=== PATIENT | female | born 1950 | race Caucasian/White ===

== ENCOUNTER 2016-07-25 12:49 | Day surgery (SDC) | payer MEDICARE, OTHER ==
[~2016-07-25 12:49] MED LIST: HYDR-3533 PO; LOVA1TAB47 PO; MELO15TA2 PO
[2016-07-25 13:40] VITALS: BP 125/73; PULSE 75; RESP 14; TEMP 98.6; O2SAT 97
--- NOTE | 2016-07-25 16:50 | RADRPT ---
EXAM DATE/TIME: 07/25/2016 13:52 [place] COMPARISON: No previous studies available for comparison. INDICATIONS : Fluid collection. MEDICAL HISTORY : Hypercholesterolemia. Arthritis. Reading glasses. SURGICAL HISTORY : Tonsillectomy. Right eye LASIK surgery. Right knee surgery. Left wrist surger y. ENCOUNTER: Initial ACUITY: 3 weeks PAIN SCORE: 2/10 LOCATION: Right arm. AREA EVALUATED: Right upper forearm antecubital fossa FINDINGS: Ms. Loza came in for an ultrasound-guided biopsy of a mass on the volar aspect of th e forearm just anterior to the antecubital fossa in intimate association with the brachial artery and median nerve. This mass is imaged as an inhomogeneous complex mass that is nonpainful and nontender to touch. This is associated with a small lymph node. Percutaneous biopsy is not recommended unless one is planned for definitive resection if this is a ma lignancy. Thank you for this consultation. Brandyn Palmer MD FACR on July 25, 2016 at 16:36 Board Certified Radiologist. This report was verified electronically.
== END 2016-07-25 14:00 | disposition home or self-care (01) ==
LOC: HRAD 12:49 → HRIP 12:50 → HRAD 14:00
PROVIDERS: ATTEND Surgery
DX: R22.31 Localized swelling, mass and lump, right upper limb (principal); E78.00 Pure hypercholesterolemia, unspecified; M19.90 Unspecified osteoarthritis, unspecified site
CPT/HCPCS: 76882; 76942